=== PATIENT | female | born 1980 | race African-American/Black ===

== ENCOUNTER 2017-09-13 15:46 | Emergency (ER) | payer OTHER ==
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
[2017-09-13 15:59] VITALS: BP 137/77; PULSE 95; TEMP 98.7; BMI 25.7
[2017-09-13] MEDS ORDERED: KETOROLAC TROMETHAMINE 60 MG/2 ML VIAL IM ONE (16:29)
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
[2017-09-13] MEDS ORDERED: KETOROLAC TROMETHAMINE 60 MG/2 ML VIAL ONE (16:37)
== END 2017-09-13 16:58 | disposition home or self-care (01) ==
LOC: JERFT 15:46
PROC: 3E0233Z Introduction of Anti-inflammatory into Muscle, Percutaneous Approach (ICD-10-PCS; principal; 2017-09-13)
DX: S16.1XXA Strain of muscle, fascia and tendon at neck level, initial encounter (principal); V49.49XA Driver injured in collision with other motor vehicles in traffic accident, initial encounter; Y92.488 Other paved roadways as the place of occurrence of the external cause; Y93.89 Activity, other specified; Y99.8 Other external cause status
CPT/HCPCS: 84703; 99281-25

== ENCOUNTER 2023-07-25 17:52 | Emergency (ER) | payer OTHER ==
[2023-07-25 18:05] VITALS: BP 116/87; PULSE 88; RESP 17; TEMP 98.3; BMI 24.3
[2023-07-25] MEDS ORDERED: AMOX TR/POT CLAV 875MG/125MG TABLETS (FP) ONE (20:24)
[2023-07-25] MEDS ORDERED: DIPHTH,PERTUSS(ACELL),TET 0.5 ML DISP.SYRIN IM ONE (20:24)
[2023-07-25] MEDS: DIPHTH,PERTUSS(ACELL),TET 0.5 ML DISP.SYRIN IM ONE (20:28)
[2023-07-25] MEDS: AMOX TR/POT CLAV 875MG/125MG TABLETS (FP) PO ONE (20:28)
== END 2023-07-25 20:44 | disposition home or self-care (01) ==
LOC: JER 17:52 → JERFT 17:52
PROC: 3E0234Z Introduction of Serum, Toxoid and Vaccine into Muscle, Percutaneous Approach (ICD-10-PCS; principal; 2023-07-25)
DX: S71.102A Unspecified open wound, left thigh, initial encounter (principal); W54.0XXA Bitten by dog, initial encounter; Z23 Encounter for immunization
CPT/HCPCS: 90471; 90715; 99283-25

== ENCOUNTER 2023-09-23 20:56 | Emergency (ER) | payer OTHER ==
[2023-09-23 21:01] VITALS: BP 110/66; RESP 18; TEMP 98; BMI 24.9
[2023-09-23 22:39] VITALS: PULSE 97
== END 2023-09-23 22:41 | disposition home or self-care (01) ==
LOC: JER 20:56
PROC: 0HQFXZZ Repair Right Hand Skin, External Approach (ICD-10-PCS; principal; 2023-09-23)
DX: S61.214A Laceration without foreign body of right ring finger without damage to nail, initial encounter (principal); W26.8XXA Contact with other sharp object(s), not elsewhere classified, initial encounter; Y93.G1 Activity, food preparation and clean up
CPT/HCPCS: 99283-25

== ENCOUNTER 2024-09-26 08:52 | Emergency (ER) | payer OTHER ==
[2024-09-26 09:00] VITALS: BP 114/80; PULSE 81; RESP 20; TEMP 98.8; BMI 25.7
[2024-09-26] MEDS ORDERED: KETOROLAC TROMETHAMINE 30 MG/1 ML VIAL ONE (10:05)
[2024-09-26] MEDS ORDERED: LIDOCAINE 4% PATCH TP ONE (10:05)
[2024-09-26] MEDS ORDERED: METHOCARBAMOL 500 MG TABLET ONE (10:05)
[2024-09-26] MEDS: METHOCARBAMOL 500 MG TABLET PO ONE (10:13)
[2024-09-26] MEDS: KETOROLAC TROMETHAMINE 30 MG/1 ML VIAL IM ONE (10:14)
[2024-09-26] MEDS: LIDOCAINE 5% TOPICAL PATCH TP ONE (10:14)
[2024-09-26] MEDS ORDERED: LIDOCAINE PATCH REMOVAL MC SCH (22:00)
== END 2024-09-26 11:05 | disposition home or self-care (01) ==
LOC: JERFT 08:52
PROC: 3E0233Z Introduction of Anti-inflammatory into Muscle, Percutaneous Approach (ICD-10-PCS; principal; 2024-09-26)
DX: M54.50 Low back pain, unspecified (principal)
CPT/HCPCS: 99284-25